=== PATIENT | female | born 1990 | race Caucasian/White ===

== ENCOUNTER 2020-03-22 06:49 | Emergency (ER) | payer BC, MEDICAID ==
[~2020-03-22] VITALS: Ht 160 cm; Wt 77.3 kg
[2020-03-22 06:55] VITALS: Ht 160 cm; Wt 77.3 kg
[2020-03-22 07:52] LABS: BASOPHILS 0.2 % (0-2); EOSINOPHILS 3.5 % (0-7); HEMATOCRIT 40.4 % (36.0-48.0); HEMOGLOBIN 13.3 g/dL (12-16); IMMATURE GRANULOCYTES 0.3 % (0-5); LYMPHOCYTES 17.6 % (15-50); MCH 26.5 pg (26.0-34.0); MCHC 32.9 g/dL (31.0-37.0); MCV 80.5 fL (80.0-100.0); MEAN PLATELET VOLUME 8.7 fL (7.4-10.4); MONOCYTES 14.2 % (2-11); NEUTROPHILS 64.2 % (40-80); PLATELET COUNT 196 10x3/uL (130-400); RBC 5.02 10x6/uL (4.00-5.40); RDW 13.4 % (11.5-14.5); WBC 11.9 10x3/uL (4.8-10.8)
[2020-03-22 08:02] LABS: CALC OSMOLALITY 266 mosm/kg (275-300); CALCIUM 9.1 mg/dL (8.5-10.1); CARBON DIOXIDE 26.7 mmol/L (21.0-32.0); CHLORIDE - SERUM 102 mmol/L (98-107); CREATININE - SERUM 0.6 mg/dL (0.6-1.3); GLUCOSE 90 mg/dL (74-106); POTASSIUM - SERUM 3.4 mmol/L (3.5-5.1); SODIUM 135 mmol/L (136-145); UREA NITROGEN 4 mg/dL (7-18); eGFR NON AFRICAN AMERICAN > 90 mL/min (90-120)
[2020-03-22 08:09] LABS: ALBUMIN 3.9 g/dL (3.4-5.0); ALKALINE PHOSPHATASE 61 U/L (30-120); ALT (SGPT) 30 U/L (10-68); BILIRUBIN - TOTAL 1.39 mg/dL (0.2-1.3); PROTEIN - SERUM 7.9 g/dL (6.4-8.2)
[2020-03-22 09:11] VITALS: BP 138/80
== END 2020-03-22 09:13 | disposition home or self-care (01) ==
LOC: D.ER 06:49
PROVIDERS: Family Medicine
DX: R06.02 Shortness of breath (principal); J45.909 Unspecified asthma, uncomplicated

== ENCOUNTER 2020-04-12 05:32 | Emergency (ER) | payer BC, MEDICAID ==
[~2020-04-12] VITALS: Ht 160 cm; Wt 79.1 kg
[2020-04-12 05:35] VITALS: BP 139/86; Ht 160 cm; Wt 79.1 kg
== END 2020-04-12 06:56 | disposition home or self-care (01) ==
LOC: D.ER 05:32
DX: S93.401A Sprain of unspecified ligament of right ankle, initial encounter (principal); J45.909 Unspecified asthma, uncomplicated; X37.1XXA Tornado, initial encounter; Y93.9 Activity, unspecified; Y92.9 Unspecified place or not applicable

== ENCOUNTER 2020-04-26 20:10 | Emergency (ER) | payer BC, MEDICAID ==
[~2020-04-26] VITALS: Ht 160 cm; Wt 79.2 kg
[2020-04-26 20:16] VITALS: BP 149/80; Ht 160 cm; Wt 79.2 kg
== END 2020-04-26 20:46 | disposition home or self-care (01) ==
LOC: D.ER 20:10
DX: O26.891 Other specified pregnancy related conditions, first trimester (principal); Z3A.12 12 weeks gestation of pregnancy; S93.401A Sprain of unspecified ligament of right ankle, initial encounter; J45.909 Unspecified asthma, uncomplicated